=== PATIENT | female | born 1980 | race Caucasian/White ===

== ENCOUNTER 2017-02-12 08:10 | Emergency (ER) | payer OTHER ==
--- NOTE | 2017-02-12 08:46 | EDPHY ---
H & P Stated Complaint: [facility] Time Seen by Provider: 02/12/17 08:38 HPI/ROS: CHIEF COMPLAINT: Sore throat HISTORY OF PRESENT ILLNESS: Patient is a 36-year-old female who comes to the emergency department complaining of a sore throat, sinus congestion and sinus pressure. She states that her symptoms began about 3 days ago. She has not had a fever but is on dexamethasone for in vitro fertilization. She has a history of Crohn's disease and colectomy. She has not had any rashes. She has not had any difficulty breathing. No history of cardiac or pulmonary disease. REVIEW OF SYSTEMS: Constitutional: denies: chills, fever, recent illness, recent injury EENTM: See HPI Respiratory: denies: cough, shortness of breath Cardiac: denies: chest pain, irregular heart rate, lightheadedness, palpitations Gastrointestinal/Abdominal: denies: abdominal pain, diarrhea, nausea, vomiting, blood streaked stools Genitourinary: denies: dysuria, frequency, hematuria, pain Musculoskeletal: denies: joint pain, muscle pain Skin: denies: lesions, rash, jaundice, bruising Neurological: denies: headache, numbness, paresthesia, tingling, dizziness, weakness Hematologic/Lymphatic: denies: blood clots, easy bleeding, easy bruising Immunologic/allergic: denies: HIV/AIDS, transplant EXAM: GENERAL: Well-appearing, well-nourished and in no acute distress. HEAD: Atraumatic, normocephalic. EYES: Pupils equal round and reactive to light, extraocular movements intact, sclera anicteric, conjunctiva are normal. ENT: TMs normal, sinus congestion then tender, oropharynx erythematous without exudates. Moist mucous membranes. NECK: Normal range of motion, supple without lymphadenopathy or JVD. LUNGS: Breath sounds clear to auscultation bilaterally and equal. No wheezes rales or rhonchi. HEART: Regular rate and rhythm without murmurs, rubs or gallops. ABDOMEN: Soft, nontender, normoactive bowel sounds. No guarding, no rebound. No masses appreciated. BACK: No CVA tenderness, no spinal tenderness, step-offs or deformities EXTREMITIES: Normal range of motion, no pitting or edema. No clubbing or cyanosis. NEUROLOGICAL: Cranial nerves II through XII grossly intact. Normal speech, normal gait. 5/5 strength, normal movement in all extremities, normal sensation PSYCH: Normal mood, normal affect. SKIN: Warm, dry, normal turgor, no visible rashes or lesions. Source: Patient Exam Limitations: No limitations - Personal History LMP (Females 10-55): 1-7 Days Ago Current Tetanus/Diphtheria Vaccine: Unsure Current Tetanus Diphtheria and Acellular Pertussis (TDAP): Unsure - Medical/Surgical History Hx Asthma: No Hx Chronic Respiratory Disease: No Hx Diabetes: No Hx Cardiac Disease: No Hx Renal Disease: No Hx Cirrhosis: No Hx Alcoholism: No Hx HIV/AIDS: No Hx Splenectomy or Spleen Trauma: No Other PMH: chrohns age 10,mesh to hernia repair hx rectal abcsess near staple from previous surg. Illeostomy 2007, colon removed 2012, hx multiple small bowel obstructions, hypothyroidism - Family History Significant Family History: No pertinent family hx - Social History Smoking Status: Never smoked Alcohol Use: Sober Drug Use: None Constitutional: Initial Vital Signs Temperature (C) 36.8 C 02/12/17 08:13 Heart Rate 66 02/12/17 08:13 Respiratory Rate 14 02/12/17 08:13 Blood Pressure 106/70 02/12/17 08:13 O2 Sat (%) 98 02/12/17 08:13 O2 Delivery Mode Room Air Allergies/Adverse Reactions: corn [[place]] Allergy (Intermediate, Verified 09/18/16 00:39) Diarrhea egg [Egg] Allergy (Intermediate, Verified 09/18/16 00:39) Diarrhea wheat [Wheat] Allergy (Intermediate, Verified 09/18/16 00:39) Diarrhea gluten Allergy (Verified 09/18/16 00:39) peanut Allergy (Verified 09/18/16 08:38) soy Allergy (Verified 09/18/16 08:38) dairy Allergy (Intermediate, Uncoded 09/18/16 00:39) Diarrhea rice Allergy (Intermediate, Uncoded 09/18/16 00:39) Diarrhea Home Medications: Medication Instructions Recorded Nature-Throid 81.25 Mg Tabs 81.25 mg PO DAILY 09/18/16 Ivf 02/12/17 Medical Decision Making ED Course/Re-evaluation: 9:10 a.m. we discussed the lab test results. The patient is reassured. She declines further workup or testing at this time is eager to go home. We discussed indications for returning. Differential Diagnosis: Partial list of the Differential diagnosis considered include but were not limited to; strep throat, influenza, viral syndrome, sinusitis and although unlikely based on the history and physical exam, I also considered pneumonia, meningitis. I discussed these differential diagnoses and the plan with the patient as well as the usual and expected course. The patient understands that the diagnosis is provisional and that in medicine we are not always correct and that further workup is often warranted. Usual and customary warnings were given. All of the patient's questions were answered. The patient was instructed to return to the emergency department should the symptoms at all worsen or return, otherwise to followup with the physician as we discussed. Departure - Departure Disposition: Home, Routine, Self-Care Clinical Impression: Upper respiratory tract infection Qualifiers: URI type: unspecified viral URI Qualified Code(s): J06.9 - Acute upper respiratory infection, unspecified; B97.89 - Other viral agents as the cause of diseases classified elsewhere Condition: Fair Instructions: Upper Respiratory Infection (ED) Referrals: CARLOS A KHOURY [Other] - As per Instructions
[2017-02-12 09:13] VITALS: BP 110/64; PULSE 81; RESP 18; TEMP 98.1; O2SAT 95
== END 2017-02-12 09:14 | disposition home or self-care (01) ==
DX: J06.9 Acute upper respiratory infection, unspecified (principal); B97.89 Other viral agents as the cause of diseases classified elsewhere; Z91.010 Allergy to peanuts

== ENCOUNTER 2017-11-19 00:16 | Observation (INO) | payer OTHER ==
[2017-11-19 00:22] VITALS: RESP 16
[2017-11-19] MEDS ORDERED: ONDANSETRON 4 MG/2 ML VIAL ONE (00:32)
[2017-11-19] MEDS ORDERED: HYDROmorphONE/DILAUDID 1 MG/ML INJ ONE (00:32)
[2017-11-19] MEDS ORDERED: HYDROmorphONE/DILAUDID 1 MG/ML INJ IVP ONE ×2 (00:35→01:05)
[2017-11-19] MEDS ORDERED: ONDANSETRON 4 MG/2 ML VIAL IVP ONE ×2 (00:35→01:58)
[2017-11-19] MEDS ORDERED: NS 1,000 ML IV ONE (00:35)
--- NOTE | 2017-11-19 00:36 | EDPHY ---
General - History Smoking Status: Never smoked Narrative: CHIEF COMPLAINT: Abdominal pelvic pain HISTORY OF PRESENT ILLNESS: Patient complains of sudden onset of right lower quadrant pelvic pain this to 4 hr ago. She feels as though it is the same as her ovarian cyst she has had in the past. Pain is constant. It is worsening with movement. Nausea but no vomiting. It does move up into the epigastrium minimally. The pain is focused in the right lower and central pelvis/suprapubic region. No vaginal bleeding or discharge but no trauma injury. Extensive abdominal pelvic history and she feels that this pain is more similar to her ovarian cysts. She did have an endoscopy yesterday for dilation of esophageal stricture at [facility]. This was uncomplicated. She had no chest pain or shortness of breath yesterday or today. No urinary complaints. No other associated complaints or modifying factors. REVIEW OF SYSTEMS: Ten systems reviewed and are negative unless otherwise noted in the HPI PCP: Dr. Soumya Loo SPECIALISTS: None currently. Previously [facility] PAST MEDICAL HISTORY: Crohn's status post total colectomy with previous ileostomies, complex ovarian cysts with hydrosalpinx, esophageal stricture PAST SURGICAL HISTORY: Multiple. None recently. Upper GI yesterday [facility] SOCIAL HISTORY: Nonsmoker. No alcohol use. Works as a dietitian locally FAMILY HISTORY: Noncontributory EXAMINATION General Appearance: Alert, no distress, in obvious discomfort Head: normocephalic, atraumatic Eyes: Pupils equal and round, no conjunctival pallor or injection ENT, Mouth: Mucous membranes moist. Airway patent Neck: Normal inspection, supple, non-tender Respiratory: Lungs are clear to auscultation. No wheezing, rhonchi or crackles Cardiovascular: Regular rate and rhythm. No murmur Gastrointestinal: Abdomen is mildly distended in the suprapubic region. Voluntary guarding of the suprapubic and right side of the pelvis. No CVA tenderness. No epigastric tenderness. No tympany. Bowel sounds are present in all 4 quadrants Neurological: A&O, nonfocal, Skin: Warm and dry, no rash. No petechiae or purpura Extremities: Nontender, no pedal edema Psychiatric: Mood and affect normal DIFFERENTIAL DIAGNOSES: Including but not limited to ovarian torsion, ovarian cysts, hydrosalpinx, appendicitis, ileitis, enteritis, cystitis, bladder calculus MDM: 12:35 a.m. Acute lower abdominal and suprapubic/pelvic pain. Patient was guarding in the suprapubic region. We discussed CT scan, but the patient declines this at this time to previous multiple scans. She is requesting ultrasound. I do feel that this is reasonable request as she has more pelvic than abdominal pain. This will allow was to rule out torsion and evaluate for ovarian cyst as well. She is receiving IV Dilaudid at time of my examination. I have also ordered a KUB to evaluate for the possibility of abdominal free air. Patient has a very complex abdominal pathology status post colectomy but no history of appendectomy. 12:40 a.m. I have reviewed the KUB with Dr. Gonzales. There are some air-fluid levels scattered but no apparent free air. Ultrasound is pending. 1:10 a.m. Case discussed with Dr. Gonzales. She will assume care the patient is time. Please see her note for further care and final disposition. SUPERVISION: Patient was evaluated and examined in conjunction with my secondary supervising physician as documented. We have both examined the patient. (Rahul Marshall) 2:00 a.m.- Ultrasound report demonstrates hydrosalpinx bilaterally, larger then on previous MRI from August of 2016. I consulted with Dr. Couch of surgery and she recommends NG tube, IV fluids, symptomatic management will assess patient later today. 2:15 a.m.- I consulted with the on-call OBGYN physician Dr. Katharine Chaudhry. We discussed the patient's case and her ultrasound findings. She recommends MRI for further evaluation of pelvic and GI pathology. She agrees with conservative management for the patient. She asked that we re-consult when MRI is performed. 2:20 a.m.- I consulted with the hospitalist Dr. Armstrong who will admit the patient. I have discussed the plan with the patient. She currently refuses NG tube. She says she would like to wait to see if she feels better with more fluids. ( Asha Gonzales) - Objective Vital Signs: Initial Vital Signs Temperature (C) 36.5 C 11/19/17 00:19 Heart Rate 70 11/19/17 00:19 Respiratory Rate 16 11/19/17 00:19 Blood Pressure 133/80 H 11/19/17 00:19 O2 Sat (%) 98 11/19/17 00:19 O2 Delivery Mode Room Air O2 (L/minute) 2 Allergies/Adverse Reactions: corn [[place]] Allergy (Intermediate, Verified 09/18/16 00:39) Diarrhea egg [Egg] Allergy (Intermediate, Verified 09/18/16 00:39) Diarrhea wheat [Wheat] Allergy (Intermediate, Verified 09/18/16 00:39) Diarrhea gluten Allergy (Verified 09/18/16 00:39) peanut Allergy (Verified 09/18/16 08:38) soy Allergy (Verified 09/18/16 08:38) dairy Allergy (Intermediate, Uncoded 09/18/16 00:39) Diarrhea rice Allergy (Intermediate, Uncoded 09/18/16 00:39) Diarrhea Home Medications: Medication Instructions Recorded Nature-Throid 81.25 Mg Tabs 81.25 mg PO DAILY 09/18/16 Ivf 02/12/17 Laboratory Results: Laboratory Results 11/19/17 00:30 11/19/17 00:30 11/19/17 11/19/17 11/19/17 00:30 00:30 00:30 WBC 10.57 10^3/uL H 10^3/uL (3.80-9.50) RBC 4.51 10^6/uL 10^6/uL (4.18-5.33) Hgb 14.8 g/dL g/dL (12.6-16.3) POC Hgb Hct 41.6 % % (38.0-47.0) POC Hct MCV 92.2 fL fL (81.5-99.8) MCH 32.8 pg pg (27.9-34.1) MCHC 35.6 g/dL g/dL (32.4-36.7) RDW 13.0 % % (11.5-15.2) Plt Count 213 10^3/uL 10^3/uL (150-400) MPV 10.4 fL fL (8.7-11.7) Neut % (Auto) 79.0 % H % (39.3-74.2) Lymph % (Auto) 14.1 % L % (15.0-45.0) Scott % (Auto) 5.6 % % (4.5-13.0) Eos % (Auto) 0.6 % % (0.6-7.6) Baso % (Auto) 0.4 % % (0.3-1.7) Nucleat RBC Rel Count 0.0 % % (0.0-0.2) Absolute Neuts (auto) 8.36 10^3/uL H 10^3/uL (1.70-6.50) Absolute Lymphs (auto) 1.49 10^3/uL 10^3/uL (1.00-3.00) Absolute Monos (auto) 0.59 10^3/uL 10^3/uL (0.30-0.80) Absolute Eos (auto) 0.06 10^3/uL 10^3/uL (0.03-0.40) Absolute Basos (auto) 0.04 10^3/uL 10^3/uL (0.02-0.10) Absolute Nucleated RBC 0.00 10^3/uL 10^3/uL (0-0.01) Immature Gran % 0.3 % % (0.0-1.1) Immature Gran # 0.03 10^3/uL 10^3/uL (0.00-0.10) POC Sodium Sodium 143 mEq/L mEq/L (134-144) POC Potassium Potassium 3.7 mEq/L mEq/L (3.5-5.2) POC Chloride Chloride 103 mEq/L mEq/L (97-110) Carbon Dioxide 27 mEq/l mEq/l (22-31) Anion Gap 13 mEq/L mEq/L (8-16) POC BUN BUN 17 mg/dL mg/dL (7-23) Creatinine 0.6 mg/dL mg/dL (0.6-1.0) POC Creatinine Estimated GFR > 60 Glucose 103 mg/dL H mg/dL (70-100) POC Glucose Calcium 10.1 mg/dL mg/dL (8.5-10.4) Total Bilirubin 0.6 mg/dL mg/dL (0.1-1.4) Conjugated Bilirubin 0.2 mg/dL mg/dL (0.0-0.5) Unconjugated Bilirubin 0.4 mg/dL mg/dL (0.0-1.1) AST 95 IU/L H IU/L (14-46) ALT 96 IU/L H IU/L (9-52) Alkaline Phosphatase 80 IU/L IU/L (38-126) Total Protein 7.4 g/dL g/dL (6.3-8.2) Albumin 4.2 g/dL g/dL (3.5-5.0) Lipase 144 IU/L IU/L (23-300) Beta HCG, Qual NEGATIVE 11/19/17 00:27 WBC RBC Hgb POC Hgb 15.0 gm/dL gm/dL (12.6-16.3) Hct POC Hct 44 % % (38-47) MCV MCH MCHC RDW Plt Count MPV Neut % (Auto) Lymph % (Auto) [place] % (Auto) Eos % (Auto) Baso % (Auto) Nucleat RBC Rel Count Absolute Neuts (auto) Absolute Lymphs (auto) Absolute Monos (auto) Absolute Eos (auto) Absolute Basos (auto) Absolute Nucleated RBC Immature Gran % Immature Gran # POC Sodium 141 mEq/L mEq/L (134-144) Sodium POC Potassium 3.1 mEq/L L mEq/L (3.3-5.0) Potassium POC Chloride 102 mEq/L mEq/L (97-110) Chloride Carbon Dioxide Anion Gap POC BUN 16 mg/dL mg/dL (7-23) BUN Creatinine POC Creatinine 0.7 mg/dL mg/dL (0.6-1.0) Estimated GFR Glucose POC Glucose 104 mg/dL H mg/dL (70-100) Calcium Total Bilirubin Conjugated Bilirubin Unconjugated Bilirubin AST ALT Alkaline Phosphatase Total Protein Albumin Lipase Beta HCG, Qual Medications Given: Discontinued Medications Hydromorphone HCl (Dilaudid) 0.5 mg IVP EDNOW ONE Stop: 11/19/17 00:36 Last Admin: 11/19/17 00:38 Dose: 0.5 mg Hydromorphone HCl (Dilaudid) 0.5 mg IVP EDNOW ONE Stop: 11/19/17 01:06 Last Admin: 11/19/17 01:06 Dose: 0.5 mg Sodium Chloride (Ns) 1,000 mls @ 0 mls/hr IV ONCE ONE PRN Reason: Wide Open Stop: 11/19/17 00:36 Last Admin: 11/19/17 00:38 Dose: 1,000 mls Lorazepam (Ativan Injection) 0.5 mg IVP EDNOW ONE Stop: 11/19/17 02:38 Last Admin: 11/19/17 02:46 Dose: 0.5 mg Ondansetron HCl (Zofran) 4 mg IVP EDNOW ONE Stop: 11/19/17 00:36 Last Admin: 11/19/17 00:35 Dose: 4 mg Ondansetron HCl (Zofran) 4 mg IVP EDNOW ONE Stop: 11/19/17 01:59 Last Admin: 11/19/17 02:46 Dose: 4 mg Point of Care Test Results: 11/19/17 00:27 POC Sodium 141 POC Potassium 3.1 L POC Chloride 102 POC BUN 16 POC Creatinine 0.7 POC Glucose 104 H Departure - Departure Disposition: [facility] Inpatient Acute Clinical Impression: Acute pelvic pain, female, Acute abdominal pain Condition: Good Referrals: SOUMYA KHOURY [Primary Care Provider] - As per Instructions
[2017-11-19 00:41] LABS: % IMMATURE GRANULYOCYTES 0.3 % (0.0-1.1); ABSOLUTE IMMATURE GRANULOCYTES 0.03 10^3/uL (0.00-0.10); ADD DIFF? NO; ADD MORPH? NO; ADD SCAN? NO; ATYPICAL LYMPHOCYTE FLAG 0 (0-99); FRAGMENT RBC FLAG 0 (0-99); HEMATOCRIT 41.6 % (38.0-47.0); HEMOGLOBIN 14.8 g/dL (12.6-16.3); LEFT SHIFT FLG 0 (0-99); LIPEMIA HEMOLYSIS FLAG 90 (0-99); MEAN CELL HEMOGLOBIN 32.8 pg (27.9-34.1); MEAN CELL HEMOGLOBIN CONCENTR. 35.6 g/dL (32.4-36.7); MEAN CELL VOLUME 92.2 fL (81.5-99.8); MEAN PLATELET VOLUME 10.4 fL (8.7-11.7); PLATELET CLUMPS FLAG 0 (0-99); PLATELET COUNT 213 10^3/uL (150-400); RED BLOOD CELL COUNT 4.51 10^6/uL (4.18-5.33)
[2017-11-19 00:56] LABS: ALANINE AMINOTRANSFERASE 96 IU/L (9-52); ALBUMIN 4.2 g/dL (3.5-5.0); ALKALINE PHOSPHATASE 80 IU/L (38-126); ANION GAP 13 mEq/L (8-16); ASPARTATE AMINOTRANSFERASE 95 IU/L (14-46); BILIRUBIN,TOTAL 0.6 mg/dL (0.1-1.4); BILIRUBIN-CONJUGATED 0.2 mg/dL (0.0-0.5); BILIRUBIN-UNCONJUGATED 0.4 mg/dL (0.0-1.1); CALCIUM 10.1 mg/dL (8.5-10.4); CARBON DIOXIDE 27 mEq/l (22-31); CHLORIDE 103 mEq/L (97-110); CREATININE 0.6 mg/dL (0.6-1.0); GLOMERULAR FILTRATION RATE > 60; GLUCOSE 103 mg/dL (70-100); POTASSIUM 3.7 mEq/L (3.5-5.2); SODIUM 143 mEq/L (134-144); TOTAL PROTEIN 7.4 g/dL (6.3-8.2)
[2017-11-19] MEDS ORDERED: ONDANSETRON DISINTEGRATING 4 MG TAB PO PRN (02:32)
[2017-11-19] MEDS ORDERED: ONDANSETRON 4 MG/2 ML VIAL IVP PRN (02:32)
[2017-11-19] MEDS ORDERED: ACETAMINOPHEN 325 MG TAB PO PRN (02:32)
[2017-11-19] MEDS ORDERED: HYDROmorphONE/DILAUDID 1 MG/ML INJ IVP PRN (02:32)
[2017-11-19] MEDS ORDERED: LORazepam 2 MG/ML INJ IVP ONE (02:37)
[2017-11-19] MEDS ORDERED: D5W 1/2 NS 1,000 ML IV SCH (02:45)
--- NOTE | 2017-11-19 02:55 | PDGENHP ---
History and Physical - Chief Complaint Abdominal pain, vomiting - History of Present Illness 37 yo F w/ complicated PMHx including Chron's s/p numerous abdominal surgeries and colostomy as well as known hydrosalpinx presents with abdominal pain. Patient was in usual state of health until yesterday afternoon when she developed abdominal pain and bloating. The pain progressed and she then developed vomiting a few hours later. She also noticed decreased output from her ostomy over this period. In the ED abdominal XR showed air fluid levels concerning for bowel obstruction. A pelvic ultrasound revealed hydrosalpinx that has increased in size from previous imaging. Patient was admitted for conservative management and further work-up. History Information - Allergies/Home Medication List Allergies/Adverse Reactions: corn [[place]] Allergy (Intermediate, Verified 09/18/16 00:39) Diarrhea egg [Egg] Allergy (Intermediate, Verified 09/18/16 00:39) Diarrhea wheat [Wheat] Allergy (Intermediate, Verified 09/18/16 00:39) Diarrhea gluten Allergy (Verified 09/18/16 00:39) peanut Allergy (Verified 09/18/16 08:38) soy Allergy (Verified 09/18/16 08:38) dairy Allergy (Intermediate, Uncoded 09/18/16 00:39) Diarrhea rice Allergy (Intermediate, Uncoded 09/18/16 00:39) Diarrhea Home Medications: Nature-Throid 81.25 Mg Tabs 81.25 mg PO DAILY 09/18/16 [Last Taken 09/18/16] Ivf 02/12/17 [Last Taken Unknown] I have personally reviewed and updated: family history, medical history - Past Medical History Additional medical history: Chron's. Hydrosalpinx - Surgical History Additional surgical history: Numerous abdominal surgeries. Colostomy - Family History Additional family history: Asked, denies - Social History Smoking Status: Never smoked Review of Systems Review of Systems: ROS: 10pt was reviewed & negative except for what was stated in HPI & below Physical Exam Physical Exam: Temp Pulse Resp BP Pulse Ox 36.5 C 70 16 133/80 H 97 11/19/17 00:19 11/19/17 00:19 11/19/17 00:19 11/19/17 00:19 11/19/17 01:16 Constitutional: appears nourished, uncomfortable Eyes: PERRL, EOMI Ears, Nose, Mouth, Throat: moist mucous membranes, no oral mucosal ulcers Cardiovascular: regular rate and rhythym, no murmur, rub, or gallop Respiratory: no respiratory distress, clear to auscultation Gastrointestinal: normoactive bowel sounds, tenderness (Diffuse), guarding, other (Colostomy RLQ) Skin: warm, normal color Neurologic: AAOx3, CN II-XII Intact Psychiatric: interacting appropriately, not anxious Lab Data & Imaging Review 11/19/17 00:30 12 00:30 WBC 10.57 10^3/uL (3.80-9.50) H 11/19/17 00:30 RBC 4.51 10^6/uL (4.18-5.33) 11/19/17 00:30 Hgb 14.8 g/dL (12.6-16.3) 11/19/17 00:30 POC Hgb 15.0 gm/dL (12.6-16.3) 11/19/17 00:27 Hct 41.6 % (38.0-47.0) 11/19/17 00:30 POC Hct 44 % (38-47) 11/19/17 00:27 MCV 92.2 fL (81.5-99.8) 11/19/17 00:30 MCH 32.8 pg (27.9-34.1) 11/19/17 00:30 MCHC 35.6 g/dL (32.4-36.7) 11/19/17 00:30 RDW 13.0 % (11.5-15.2) 11/19/17 00:30 Plt Count 213 10^3/uL (150-400) 11/19/17 00:30 MPV 10.4 fL (8.7-11.7) 11/19/17 00:30 Neut % (Auto) 79.0 % (39.3-74.2) H 11/19/17 00:30 Lymph % (Auto) 14.1 % (15.0-45.0) L 11/19/17 00:30 [place] % (Auto) 5.6 % (4.5-13.0) 11/19/17 00:30 Eos % (Auto) 0.6 % (0.6-7.6) 11/19/17 00:30 Baso % (Auto) 0.4 % (0.3-1.7) 11/19/17 00:30 Nucleat RBC Rel Count 0.0 % (0.0-0.2) 11/19/17 00:30 Absolute Neuts (auto) 8.36 10^3/uL (1.70-6.50) H 11/19/17 00:30 Absolute Lymphs (auto) 1.49 10^3/uL (1.00-3.00) 11/19/17 00:30 Absolute Monos (auto) 0.59 10^3/uL (0.30-0.80) 11/19/17 00:30 Absolute Eos (auto) 0.06 10^3/uL (0.03-0.40) 11/19/17 00:30 Absolute Basos (auto) 0.04 10^3/uL (0.02-0.10) 11/19/17 00:30 Absolute Nucleated RBC 0.00 10^3/uL (0-0.01) 11/19/17 00:30 Immature Gran % 0.3 % (0.0-1.1) 11/19/17 00:30 Immature Gran # 0.03 10^3/uL (0.00-0.10) 11/19/17 00:30 POC Sodium 141 mEq/L (134-144) 11/19/17 00:27 Sodium 143 mEq/L (134-144) 11/19/17 00:30 POC Potassium 3.1 mEq/L (3.3-5.0) L 11/19/17 00:27 Potassium 3.7 mEq/L (3.5-5.2) 11/19/17 00:30 POC Chloride 102 mEq/L (97-110) 11/19/17 00:27 Chloride 103 mEq/L (97-110) 11/19/17 00:30 Carbon Dioxide 27 mEq/l (22-31) 11/19/17 00:30 Anion Gap 13 mEq/L (8-16) 11/19/17 00:30 POC BUN 16 mg/dL (7-23) 11/19/17 00:27 BUN 17 mg/dL (7-23) 11/19/17 00:30 Creatinine 0.6 mg/dL (0.6-1.0) 11/19/17 00:30 POC Creatinine 0.7 mg/dL (0.6-1.0) 11/19/17 00:27 Estimated GFR > 60 11/19/17 00:30 Glucose 103 mg/dL (70-100) H 11/19/17 00:30 POC Glucose 104 mg/dL (70-100) H 11/19/17 00:27 Calcium 10.1 mg/dL (8.5-10.4) 11/19/17 00:30 Total Bilirubin 0.6 mg/dL (0.1-1.4) 11/19/17 00:30 Conjugated Bilirubin 0.2 mg/dL (0.0-0.5) 11/19/17 00:30 Unconjugated Bilirubin 0.4 mg/dL (0.0-1.1) 11/19/17 00:30 AST 95 IU/L (14-46) H 11/19/17 00:30 ALT 96 IU/L (9-52) H 11/19/17 00:30 Alkaline Phosphatase 80 IU/L (38-126) 11/19/17 00:30 Total Protein 7.4 g/dL (6.3-8.2) 11/19/17 00:30 Albumin 4.2 g/dL (3.5-5.0) 11/19/17 00:30 Lipase 144 IU/L (23-300) 11/19/17 00:30 Beta HCG, Qual NEGATIVE 11/19/17 00:30 Imaging Review: Abdominal U/S: Prominently dilated tubes, RT>LT No free fluid Flow to ovaries, no torsion Called to ER @ 0155 hrs Assessment & Plan Assessment: 37 yo F w/ hx of Chron's, numerous abdominal surgeries, known hydrosalpinx present with likely bowel obstruction. Plan: 1. Acute abdominal pain - Suspect partial bowel obstruction based on clinical picture and appearance of abdominal XR. Unclear what role her increasing hydrosalpinx is playing. She has had various bowel obstructions in the past and states this is similar to her prior bouts. - Patient would like to hold off on NGT unless symptoms worsen - NPO, mIVF, pain control - Surgical service consulted, appreciate assistance 2. Hydrosalpinx L>R - Known issues but appears to have increased in size since last imaging. - OB consulted, requested MRI - MRI w/wo A/P ordered 3. Hx of Chron's s/p colostomy - Not on controlling medication; has not had a flare in many years but has had many complications of numerous surgeries. Diet - NPO Code - Full Ppx - Low risk Dispo - Admit to observation status
[2017-11-19 03:17] LABS: COLOR AMBER; LEUKOCYTE ESTERASE,URINE NEGATIVE (NEGATIVE); MUCUS 1+ /lpf (NONE-1+); NITRITE,URINE NEGATIVE (NEGATIVE)
[2017-11-19 05:47] LABS: % IMMATURE GRANULYOCYTES 0.2 % (0.0-1.1); ABSOLUTE IMMATURE GRANULOCYTES 0.02 10^3/uL (0.00-0.10); ADD DIFF? NO; ADD MORPH? NO; ADD SCAN? NO; ATYPICAL LYMPHOCYTE FLAG 0 (0-99); FRAGMENT RBC FLAG 0 (0-99); HEMATOCRIT 37.6 % (38.0-47.0); HEMOGLOBIN 13.1 g/dL (12.6-16.3); LEFT SHIFT FLG 0 (0-99); LIPEMIA HEMOLYSIS FLAG 90 (0-99); MEAN CELL HEMOGLOBIN 32.7 pg (27.9-34.1); MEAN CELL HEMOGLOBIN CONCENTR. 34.8 g/dL (32.4-36.7); MEAN CELL VOLUME 93.8 fL (81.5-99.8); MEAN PLATELET VOLUME 10.2 fL (8.7-11.7); PLATELET CLUMPS FLAG 0 (0-99); PLATELET COUNT 180 10^3/uL (150-400); RED BLOOD CELL COUNT 4.01 10^6/uL (4.18-5.33); RED CELL DISTRIBUTION WIDTH 13.1 % (11.5-15.2)
[2017-11-19 06:06] LABS: ANION GAP 9 mEq/L (8-16); CARBON DIOXIDE 27 mEq/l (22-31); CHLORIDE 105 mEq/L (97-110); CREATININE 0.6 mg/dL (0.6-1.0); GLOMERULAR FILTRATION RATE > 60; GLUCOSE 129 mg/dL (70-100); SODIUM 141 mEq/L (134-144)
--- NOTE | 2017-11-19 08:33 | GCON ---
[f rep st] CONSULTATION REFERRING PHYSICIAN: Asha Gonzales MD CHIEF COMPLAINT: Bowel obstruction. HISTORY OF PRESENT ILLNESS: The patient is a 37-year-old woman with Crohn disease, status post multi ple abdominal surgeries. She reports that she knows that she has multiple adhesions. She presented to the emergency room with abdominal pain and bloating. She developed vomiting. She had decreased o utput from her ostomy. Her abdominal x-ray showed air fluid levels. She had a pelvic ultrasound zeenat t revealed increasing size and hydrosalpinx. She presents to the hospital for admission. Since she has been admitted, she has had a large amount of ostomy output and feels much better. PAST MEDICAL HISTORY: Crohn disease. PAST SURGICAL HISTORY: Multiple abdominal surgeries, including ostomy, as well as lysis of adhesions . SOCIAL HISTORY: She is a nonsmoker. FAMILY HISTORY: No significant family history. REVIEW OF SYSTEMS: A 10-point review of systems is negative. PHYSICAL EXAM: VITAL SIGNS: Vitals reviewed. GENERAL: A pleasant, well-nourished, well-groomed wo man, sitting up in bed. HEENT: Normocephalic. No gross hearing deficits. Mucous membranes moist. Pupils equal and round. No scleral icterus. LUNGS: Clear to auscultation bilaterally. No increas ed work of breathing. CARDIAC: Regular rate. ABDOMEN: Slightly firm. Multiple abdominal incision s. Her colostomy bag is very full of gas and stool. MUSCULOSKELETAL: Normal nails. NEURO: Grossl y intact. PSYCH: Mood and affect normal. LAB RESULTS: I personally reviewed the results of her abdominal x-ray, which showed air-fluid levels . IMPRESSION AND PLAN: The patient is a 37-year-old woman with Crohn disease, who presented with sympt oms consistent with small-bowel obstruction. In addition, she also has increasing size of her hydros alpinx. Overnight her bowel obstruction has resolved. She does not require surgical intervention at this point. We discussed that she may require intervention for her hydrosalpinx. Please re-consult if needed. /[id number]
--- NOTE | 2017-11-19 10:04 | HOSPPROG ---
Hospitalist Progress Note Assessment/Plan: 37 yo F w/ hx of Chron's, numerous abdominal surgeries, known hydrosalpinx present with likely bowel obstruction. *SBO with associated abdominal pain -resolved -hx of multiple abdominal surgeries *hydrosalpinx L > R -OB to see -may need surgery -MRI *Crohn's disease -s/p colostomy *Plan: if ok by OB physician, after MRI is done, will dc home unless she needs surgery. Subjective: Gauri is feeling better, a bit of nausea, but pain has almost resolved. Objective: Vital Signs Temp Pulse Resp BP Pulse Ox 36.9 C 62 16 117/65 97 11/19/17 07:33 11/19/17 07:33 11/19/17 07:33 11/19/17 07:33 11/19/17 07:33 Laboratory Results 11/19/17 05:26 11/19/17 05:26 11/18/17 11/19/17 11/20/17 05:59 05:59 05:59 Intake Total 1000 Balance 1000 - Physical Exam Constitutional: no apparent distress, other (thin) Eyes: PERRL Ears, Nose, Mouth, Throat: hearing normal Cardiovascular: regular rate and rhythym Respiratory: no respiratory distress Gastrointestinal: normoactive bowel sounds, tenderness Skin: warm, normal color Musculoskeletal: full muscle strength Neurologic: AAOx3 Psychiatric: interacting appropriately ICD10 Worksheet Patient Problems: Problems Problem Status Onset Acute abdominal pain Acute Acute pelvic pain, female Acute Abdominal pain Acute History of Crohn's disease Acute Small bowel obstruction Acute Upper respiratory tract infection Acute
[2017-11-19] MEDS ORDERED: GADOBUTROL 10 ML VIAL IVP ONE (11:54)
--- NOTE | 2017-11-19 13:14 | ASMTCMCOM ---
CM Note CM Note Notes: Spoke w/RN, anticipate pt will dc home w/support of when medically stable. CM available for any changes. Date Signed: 11/19/2017 01:14 PM Electronically Signed By:Nusrat Zhu RN
[2017-11-19 14:58] VITALS: BP 98/66; PULSE 59; TEMP 97.4; O2SAT 93
--- NOTE | 2017-11-19 15:48 | GDS ---
[f rep st] DISCHARGE SUMMARY DISCHARGE DIAGNOSES: 1. Small bowel obstruction with associated abdominal pain. 2. Hydrosalpinx, left greater than right. 3. Crohn disease, status post colostomy. CONSULTATIONS: Isatu Couch MD. HISTORY OF PRESENT ILLNESS: Briefly, the patient is a 37-year-old woman with Crohn disease, status post multiple abdominal surgeries. She knows that she has multiple adhesions. She presented to the emergency room with abdominal pain and bloating with associated vomiting. She had decreased output from her ostomy. Her abdominal x-ray showed air-fluid levels. A pelvic ultrasound revealed increasing size in hydrosalpinx. In addition, she had an abdominal/ pelvis MRI performed which showed increased right hydrosalpinx. She has a chronic left hydrosalpinx. She looks like she may also have endometriosis. I reviewed this imaging with Dr. Weldon with [facility]. She has recommended that the patient get further followup with Dr. Beny Omer at [facility]. She also was noted to have a hemorrhagic cyst that may need to be drained. I reviewed this with the patient. She will follow up with this provider in the outpatient setting. HOSPITAL COURSE PER PROBLEM: 1. Small bowel obstruction: This is resolved. Her ostomy is now having good output. She is tolerating clear liquids. 2. Hydrosalpinx, left greater than right. She may need surgery down the road. She also needs a possible drainage of a complex hemorrhagic cyst. She has an appointment already set up for next month. 3. Crohn disease. She is status post colostomy. DISCHARGE CONDITION: Stable. Blood pressure is 98/66, heart rate 59, respiratory rate is 16, O2 sat in room air 93%, temperature 36.3 Celsius. MEDICATIONS AT DISCHARGE: Please see the EMR. DISCHARGE INSTRUCTIONS: 1. To follow up with Dr. Omer. 2. Take copies of her MRI imaging. 3. If she has fever, chills, or worsening abdominal pain, to return to the emergency room. /[id number]/MODL MTDD
[2017-11-20] MEDS ORDERED: NON-FORMULARY NEW DRUG (Thyroid,Pork [Armour Thyroid] 90 MG) PO SCH (06:00)
[2017-11-20] MEDS ORDERED: THYROID 60 MG TAB PO SCH (06:00)
--- NOTE | 2017-11-20 14:42 | ASDISCHSUM ---
Discharge Information Plan Status:Home with No Needs Medically Cleared to Leave: Discharge Date:11/19/2017 04:10 PM CM D/C Disposition:Home, Routine, Self-Care ADT D/C Disposition:Home, Routine, Self-Care Projected Discharge Date:11/19/2017 04:10 PM Transportation at D/C: Discharge Delay Reason: Follow-Up Date:11/19/2017 04:10 PM Discharge Slot: Final Diagnosis: Placement Information Patient Contact Information Contact Name:CONCHA Relationship: Address:[address] [place] Work Phone: City:[facility] Phone: [facility]/Zip Code:[place] [address] Email: Financial Information Financial Class:HMO and PPO Plans Primary Plan Desc:[employer] Primary Plan Number:[id number] Secondary Plan Desc: Secondary Plan Number: Assessment Information [facility] CM Progress Note CM Note CM Note Notes: Spoke w/RN, anticipate pt will dc home w/support of when medically stable. CM available for any changes. Date Signed: 11/19/2017 01:14 PM Electronically Signed By:Nusrat Zhu RN Intervention Information
== END 2017-11-19 16:10 | disposition home or self-care (01) ==
LOC: F3E 03:02
PROVIDERS: ADMIT Student in an Organized Health Care Education/Training Program; ATTEND Internal Medicine
DX: K56.699 Other intestinal obstruction unspecified as to partial versus complete obstruction (principal); N70.11 Chronic salpingitis; K50.90 Crohn's disease, unspecified, without complications; N83.299 Other ovarian cyst, unspecified side; Z93.3 Colostomy status
CPT/HCPCS: 72197; 74020; 74183; 76856; G0378; 82947-QW; 96374; A9585; J1170; J2060; J2405

== ENCOUNTER → 2019-02-22 | Outpatient (CLI) | payer OTHER ==
[~2019-02-22] MED LIST: GADOBUTROL 10 ML VIAL IVP ONE
== END ==
LOC: FIMAGING 11:43
PROVIDERS: ATTEND Obstetrics & Gynecology
DX: R19.09 Other intra-abdominal and pelvic swelling, mass and lump (principal)
CPT/HCPCS: A9585